=== PATIENT | female | born 1985 | race Caucasian/White ===

== ENCOUNTER 2023-08-01 04:05 | Emergency (ER) | payer MEDICARE ==
[~2023-08-01] VITALS: Ht 167.6 cm; Wt 63.5 kg
[2023-08-01] MEDS ORDERED: ONDANSETRON 4 MG/2 ML VIAL IV ONE (04:30)
[2023-08-01 04:48] LABS: BASOPHILS # (AUTO) 0.1 K/UL (0.0-0.2); BASOPHILS % (AUTO) 0.7 % (0.0-2.0); EOSINOPHILS # (AUTO) 0.2 K/uL (0.0-0.7); EOSINOPHILS % (AUTO) 2.5 % (0.0-7.0); HEMATOCRIT 39.1 % (31.2-41.9); HEMOGLOBIN 13.2 g/dL (10.9-14.3); LYMPHOCYTES # (AUTO) 2.1 K/uL (0.8-4.8); LYMPHOCYTES % (AUTO) 24.7 % (20.5-51.5); MEAN CORPUSCULAR HEMOGLOBIN 30.2 uug (24.7-32.8); MEAN CORPUSCULAR HGB CONC 34 g/dL (32.3-35.6); MEAN CORPUSCULAR VOLUME 89.5 fL (75.5-95.3); MONOCYTES # (AUTO) 0.9 K/uL (0.1-1.30); MONOCYTES % (AUTO) 10.6 % (0.0-11.0); NEUTROPHILS # (AUTO) 5.3 K/uL (1.8-8.9); NEUTROPHILS % (AUTO) 61.5 % (38.5-71.5); PLATELET COUNT (AUTO) 262 K/uL (179-408); RED BLOOD CELL COUNT(AUTO) 4.37 MIL/uL (3.63-4.92); RED CELL DISTRIBUTION WIDTH 13.6 % (12.3-17.7); WHITE BLOOD COUNT (AUTO) 8.7 K/uL (3.8-11.8)
[2023-08-01] MEDS ORDERED: ONDANSETRON 4 MG/2 ML VIAL ONE (04:53)
[2023-08-01 04:56] LABS: DIFFERENTIAL COMMENT 1
[2023-08-01 05:16] LABS: CALCIUM 9.4 mg/dL (8.5-10.1); CREATININE 0.8 mg/dL (0.6-1.3); POTASSIUM 3.7 mmol/L (3.5-5.1)
[2023-08-01 05:21] LABS: ALBUMIN 3.9 g/dL (3.4-5.0); BILIRUBIN,TOTAL 0.2 mg/dL (0.2-1.0); TOTAL PROTEIN, SERUM 7.6 g/dL (6.4-8.2)
[2023-08-01 05:23] LABS: *BILIRUBIN,URIN NEGATIVE (NEGATIVE); *CLARITY,URINE CLEAR (CLEAR); *COLOR,URINE YELLOW (YELLOW); *KETONES,URINE NEGATIVE (NEGATIVE); *PROTEIN,URINE NEGATIVE (NEGATIVE); *UROBILINOGEN,URINE 0.2 E.U./dl (NORMAL); LEUKOCYTE ESTERASE ,URINE NEGATIVE (NEGATIVE); NITRITE, URINE NEGATIVE (NEGATIVE); UGLUCOSE NEGATIVE (NEGATIVE)
[2023-08-01 05:24] LABS: *BLOOD, URINE NEGATIVE (NEGATIVE); *URINE HCG, QUAL NEGATIVE (NEGATIVE)
[2023-08-01 05:30] LABS: *AMPHETAMINE, URINE NEGATIVE (NEGATIVE); *BARBITURATE, URINE NEGATIVE (NEGATIVE); *BENZODIAZEPINE, URINE NEGATIVE (NEGATIVE); *CANNABINOID, URINE POSITIVE (NEGATIVE); *COCCAINE, URINE NEGATIVE (NEGATIVE); *OPIATE, URINE NEGATIVE (NEGATIVE); *PHENCYCLIDINE SCREEN,URINE NEGATIVE (NEGATIVE)
[2023-08-01 05:33] LABS: FENTANYL, URINE NEGATIVE (NEGATIVE)
[2023-08-01] MEDS ORDERED: IV NS 1000 ML 1,000 ML IV ONE ×2 (06:15→08:00)
[2023-08-01] MEDS ORDERED: KETOROLAC TROMETHAMINE 30 MG INJ IVP ONE (06:15)
[2023-08-01] MEDS ORDERED: KETOROLAC TROMETHAMINE 30 MG INJ ONE (06:21)
[2023-08-01] MEDS ORDERED: MAGNESIUM HYDROXIDE 30 ML LIQUID UDC PO ONE (07:30)
[2023-08-01] MEDS ORDERED: CYANOCOBALAMIN 1000 MCG/ML VIAL IM ONE (08:00)
[2023-08-01] MEDS ORDERED: NEOM500T PO (08:04)
[2023-08-01] MEDS ORDERED: SULF1TAB48 PO (08:04)
[2023-08-01] MEDS ORDERED: MECO10006 IM (08:04)
[2023-08-01] MEDS ORDERED: RIFA550T PO (08:04)
[2023-08-01] MEDS ORDERED: SYRI-29 MC (08:05)
[2023-08-01] MEDS ORDERED: MAGNESIUM HYDROXIDE 30 ML LIQUID UDC ONE (08:15)
[2023-08-01] MEDS ORDERED: CYANOCOBALAMIN 1000 MCG/ML VIAL ONE (08:15)
[2023-08-01 09:56] VITALS: BP 119/69; O2SAT 100
== END 2023-08-01 09:57 | disposition home or self-care (01) ==
LOC: ER 04:14
DX: K52.9 Noninfective gastroenteritis and colitis, unspecified (principal); Z91.040 Latex allergy status
CPT/HCPCS: 99285; 74176; 96374; 96361; 96375; 80053; 82607; 84703; 85025; 87040; 36415; 96372; 83605; 80307; 81003; J3420; J1885; J2405; J7040 ×2; A4606; A4663